=== PATIENT | male | born 1970 | race American Indian/Alaskan Native ===

== ENCOUNTER 2018-02-25 18:45 | Outpatient (CLI) | payer OTHER ==
--- NOTE | 2018-02-25 23:21 | XRay Report ---
FINAL REPORT PROCEDURE: XR HIP 2-3V LT TECHNIQUE: LEFT hip radiographs, 2 views each, including AP view of the pelvis. HISTORY: PAINFUL HIP COMPARISON: No prior studies are available for comparison. FINDINGS: There is increased density with mild degree deformity of bilateral femoral heads. There is severe degree narrowing of bilateral hip joint spaces. Subarticular sclerosis is noted involving bilateral acetabula. An acute fracture is not identified. There are no lytic lesions. 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
--- NOTE | 2018-02-25 23:25 | XRay Report ---
FINAL REPORT PROCEDURE: XR KNEE BILAT 1-2V TECHNIQUE: Bilateral knee radiographs, AP, and lateral. HISTORY: PAINFULL KNEES COMPARISON: No prior studies are available for comparison. FINDINGS: Bony alignment is within normal limits. There is narrowing of the right patellofemoral and medial tibiofemoral compartments associated with mild degree osteophyte formation.. No evidence of effusion is noted in bilateral joints. There is no acute fracture. Soft tissues are unremarkable. IMPRESSION: Osteoarthritis right knee
== END 2018-02-25 18:46 | disposition home or self-care (01) ==
LOC: XRAY 18:45
PROVIDERS: ATTEND Internal Medicine
DX: Z02.71 Encounter for disability determination (principal); M17.11 Unilateral primary osteoarthritis, right knee; M25.552 Pain in left hip; M54.5 Low back pain